=== PATIENT | male | born 1985 | race Caucasian/White ===

== ENCOUNTER 2017-01-10 16:16 | Emergency (ER) | payer OTHER ==
[2017-01-10 16:25] VITALS: TEMP 98.6; BMI 46.3
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
[2017-01-10] MEDS ORDERED: OXYCODONE/APAP 5/325MG COMBO TABLET PO ONE (16:49)
[2017-01-10] MEDS ORDERED: ONDANSETRON *ODT* 4 MG TABLET SL ONE (16:49)
[2017-01-10] MEDS ORDERED: ONDANSETRON *ODT* 4 MG TABLET ONE (16:51)
[2017-01-10] MEDS ORDERED: OXYCODONE/APAP 5/325MG COMBO TABLET ONE (16:51)
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
[2017-01-10 18:53] VITALS: BP 138/76; PULSE 85
== END 2017-01-10 18:53 | disposition home or self-care (01) ==
LOC: JER 16:16
DX: R07.89 Other chest pain (principal); V43.52XA Car driver injured in collision with other type car in traffic accident, initial encounter; Y92.488 Other paved roadways as the place of occurrence of the external cause; Y93.89 Activity, other specified
CPT/HCPCS: 71020-TC; 73030-TC-LT; 99283-25

== ENCOUNTER 2017-08-21 10:40 | Emergency (ER) | payer OTHER, BC ==
[2017-08-21 10:49] VITALS: BP 141/75; PULSE 85; BMI 39.7
[2017-08-21] MEDS ORDERED: DIPHTH,PERTUSS(ACELL),TET 0.5 ML DISP.SYRIN IM ONE (12:36)
--- NOTE | 2017-08-21 12:42 | PDOC ---
History of Present Illness - General Chief Complaint: Laceration Stated Complaint: RT FINGERS LACERATION Time Seen by Provider: 08/21/17 12:11 History Source: Patient Exam Limitations: No Limitations - History of Present Illness Initial Comments: 08/21/17 12:38 My Chief Complaint: rt. index finger laceration History of Present Illness: Occurred: reports: just prior to arrival (at work ) Severity: reports: mild (rt. index finger ) Pain Location: reports: upper extremity (rt. index finger avulsion laceration distal ) Method of Injury: Yes: other (cut on a blade in kitchen at work ) Modifying Factors: improves with: other (pressure dressing ) Loss of Consciousness: no loss of consciousness Associated Symptoms (Fall): denies symptoms Past History - Past Medical History Allergies/Adverse Reactions: Allergies Allergy/AdvReac Type Severity Reaction Status Date / Time No Known Allergies Allergy Verified 08/21/17 10:50 Home Medications: Ambulatory Orders NK [No Known Home Medication] 08/21/17 Anemia: No Asthma: Yes Cancer: No Cardiac Disorders: No CVA: No COPD: No CHF: No Dementia: No Diabetes: No GI Disorders: Yes (GERD,H/O H.PYLORI) Disorders: No HTN: No Hypercholesterolemia: No Liver Disease: No Seizures: No Thyroid Disease: No - Surgical History Abdominal Surgery: No Appendectomy: No Cardiac Surgery: No Cholecystectomy: No Lung Surgery: No Neurologic Surgery: No Orthopedic Surgery: No - Suicide/Smoking/Psychosocial Hx Smoking Status: No Smoking History: Current every day smoker Have you smoked in the past 12 months: Yes Number of Cigarettes Smoked Daily: 8 Information on smoking cessation initiated: Yes 'Breaking Loose' booklet given: 08/21/17 Hx Alcohol Use: Yes (SOCIAL) Drug/Substance Use Hx: No Substance Use Type: None Hx Substance Use Treatment: No Review of Systems - Review of Systems Able to Perform ROS?: Yes Constitutional: No: Symptoms Reported HEENTM: No: Symptoms Reported Respiratory: No: Symptoms reported Cardiac (ROS): No: Symptoms Reported ABD/GI: No: Symptoms Reported : No: Symptoms Reported Musculoskeletal: No: Symptoms Reported Integumentary: Yes: Other (rt. index finger distal aspect avulsion laceration ) Neurological: No: Symptoms reported *Physical Exam - Vital Signs Last Vital Signs Temp Pulse Resp BP Pulse Ox 85 20 141/75 99 08/21/17 10:47 11/29/17 10:47 08/21/17 10:47 08/21/17 10:47 - Physical Exam General Appearance: Yes: Appropriately Dressed Comments:: 08/21/17 12:42 radial pulse 4 + rt. Extremity: positive: Normal Capillary Refill, Normal Inspection, Normal Range of Motion (rt. index finger DIP, PIP jt and mcp jt) Integumentary: positive: Other (rt. index finger distal aspect pea size avulsion ) Neurologic: positive: Alert, Normal Response, Respond to painful stimul (right index ), Responsive Procedures - Consent Consent obtained: From Patient - Laceration/Wound Repair Right Distal Volar Finger 2nd digit Wound Length: to 2.5 cm Wound Explored: clean Wound's Depth, Shape: superficial (avulsion pea size ) Irrigated w/ Saline: Yes Betadine Prep: Yes Sterile Dressing Applied: No Progress: 08/21/17 12:47 cleansed rt. index finger with betadine, than NS 0.9% applied surgicel, telfa, romel *DC/Admit/Observation/Transfer Diagnosis at time of Disposition: Laceration - Discharge Dispostion Disposition: HOME Condition at time of disposition: Stable - Referrals Referrals: Marylu Minaya MD [Primary Care Provider] - - Patient Instructions Additional Instructions: Keep dressing dry today tomorrow may wash wound with antibacterial soap and water and pat dry do not remove surgicel allow it to fall off on its own once it does may apply tiny amount of bacitracin ointment twice daily, cover with bandaid except at night when sleeping return to emergency room if any discharge from wound or redness around wound or any fever Today your tetanus diphtheria and pertussis vaccine was updated And patient voiced understanding of discharge instructions and all questions were answered - Post Discharge Activity Forms/Work/School Notes: Back to Work
== END 2017-08-21 13:05 | disposition home or self-care (01) ==
LOC: JERFT 10:40
PROC: 3E0234Z Introduction of Serum, Toxoid and Vaccine into Muscle, Percutaneous Approach (ICD-10-PCS; principal; 2017-08-21)
PROC: 0HQFXZZ Repair Right Hand Skin, External Approach (ICD-10-PCS; 2017-08-21)
DX: S61.012A Laceration without foreign body of left thumb without damage to nail, initial encounter (principal); W27.8XXA Contact with other nonpowered hand tool, initial encounter; Y93.89 Activity, other specified; Y92.89 Other specified places as the place of occurrence of the external cause; Y99.0 Civilian activity done for income or pay
CPT/HCPCS: 90715; 99281-25

== ENCOUNTER 2020-10-25 21:55 | Emergency (ER) | payer SELFPAY ==
[2020-10-25 22:03] VITALS: BMI 41.5
[2020-10-25] MEDS ORDERED: SODIUM CHLORIDE 1,000 ML IV STA (22:17)
[2020-10-25] MEDS ORDERED: ONDANSETRON 4 MG/2 ML VIAL IVPUSH ONE (22:17)
[2020-10-25] MEDS ORDERED: ONDANSETRON 4 MG/2 ML VIAL ONE (22:27)
[2020-10-25] MEDS ORDERED: BAMLANIVIMAB 700 MG in SODIUM CHLORIDE 250 ML IVPB ONE (23:06)
[2020-10-25 23:27] LABS: POTASSIUM 3.4 mmol/L (3.5-5.1)
[2020-10-25 23:29] LABS: ALBUMIN 3.6 g/dl (3.4-5.0); BLOOD UREA NITROGEN 7.7 mg/dL (7-18); CALCIUM 7.9 mg/dL (8.5-10.1)
[2020-10-25 23:33] LABS: CREATININE 0.9 mg/dL (0.55-1.3); HEMATOCRIT 37.8 % (35.4-49); HEMOGLOBIN 13.3 GM/dL (11.7-16.9); MCH 30.8 pg (25.7-33.7); MCHC 35.2 g/dl (32.0-35.9); MEAN CELL VOLUME 87.4 fl (80-96); MEAN PLT VOLUME 8.5 fl (7.5-11.1); PLATELET COUNT 179 K/MM3 (134-434); RBC 4.33 M/mm3 (4.00-5.60); RDW 12.5 % (11.9-15.9); WHITE BLOOD COUNT 8.3 K/mm3 (4.0-10.0)
[2020-10-25 23:34] LABS: BILIRUBIN,TOTAL 0.4 mg/dL (0.2-1); TOT PROT 7.4 g/dl (6.4-8.2)
[2020-10-26] MEDS ORDERED: ACETAMINOPHEN 325 MG TABLET (FP) PO ONE (00:36)
[2020-10-26] MEDS ORDERED: ACETAMINOPHEN 325 MG TABLET (FP) ONE (00:39)
[2020-10-26 01:01] LABS: EPI CELLS 12 /uL (0-25.1); HYALINE CASTS 0 /uL (0-3.1); PH,URINE 6.5 (5.0-8.0); URINE APPEARANCE CLEAR; URINE BACTERIA 46 /uL (0-1359); URINE BILIRUBIN NEGATIVE (NEGATIVE); URINE COLOR YELLOW; URINE GLUCOSE (UA) NEGATIVE (NEGATIVE); URINE KETONE NEGATIVE (NEGATIVE); URINE LEUK ESTERASE NEGATIVE (NEGATIVE); URINE NITRITE NEGATIVE (NEGATIVE); URINE PROTEIN TRACE (NEGATIVE); URINE RBC 11 /uL (0-23.9); URINE UROBILINOGEN 0.2 mg/dL (0.2-1.0); URINE WBC 12 /uL (0-25.8)
[2020-10-26] MEDS ORDERED: guaiFENesin/D-METHORPHAN HB 10 ML UNIT-DOSE CUPS PO ONE (02:33)
[2020-10-26] MEDS ORDERED: guaiFENesin/D-METHORPHAN HB 10 ML UNIT-DOSE CUPS ONE ×2 (02:35→02:40)
[2020-10-26 03:02] VITALS: BP 113/72; PULSE 82; TEMP 98.8
== END 2020-10-26 03:28 | disposition home or self-care (01) ==
LOC: JER 21:55
PROC: 3E03329 Introduction of Other Anti-infective into Peripheral Vein, Percutaneous Approach (ICD-10-PCS; principal; 2020-10-25)
PROC: 3E033GC Introduction of Other Therapeutic Substance into Peripheral Vein, Percutaneous Approach (ICD-10-PCS; 2020-10-25)
PROC: 3E0337Z Introduction of Electrolytic and Water Balance Substance into Peripheral Vein, Percutaneous Approach (ICD-10-PCS; 2020-10-25)
DX: U07.1 COVID-19 (principal)
CPT/HCPCS: 36415; 71045-TC-FY; 80053; 81003; 83690; 87086; 93005; 93010; 99285-25; M0239; Q0239

== ENCOUNTER 2020-10-27 09:45 | Inpatient (IN) | payer OTHER ==
[2020-10-27] MEDS ORDERED: ONDANSETRON 4 MG/2 ML VIAL IVPUSH ONE (10:33)
[2020-10-27] MEDS ORDERED: LACTATED RINGERS SOLUTION 1000 ML INFUS.BAG IV ONE (10:34)
[2020-10-27] MEDS ORDERED: DEXAMETHASONE SOD PHOSPHATE 4 MG/1 ML VIAL IVPUSH ONE (10:37)
[2020-10-27] MEDS ORDERED: CODEINE SO4 30 MG TABLET PO ONE (10:48)
[2020-10-27] MEDS ORDERED: ACETAMINOPHEN 1000 MG/100 ML VIAL (NON FORMULARY) IVPB ONE (11:05)
[2020-10-27] MEDS ORDERED: ALBUTEROL SO4 2.5/IPRATROPIUM 0.5 INH SOL 3 ML VIAL.NEB. NEB ONE ×2 (11:36→11:40)
[2020-10-27] MEDS ORDERED: ACETAMINOPHEN INJECTION 100 ML IVPB ONE (11:41)
[2020-10-27] MEDS ORDERED: DEXAMETHASONE SOD PHOSPHATE 4 MG/1 ML VIAL ONE (11:41)
[2020-10-27] MEDS ORDERED: ONDANSETRON 4 MG/2 ML VIAL ONE (11:41)
[2020-10-27 11:43] LABS: BASO % 0.2 % (0-2.0); HEMATOCRIT 39.4 % (35.4-49); HEMOGLOBIN 13.6 GM/dL (11.7-16.9); LYMPH % 14.4 % (8-40); MCH 30.7 pg (25.7-33.7); MCHC 34.6 g/dl (32.0-35.9); MEAN CELL VOLUME 88.8 fl (80-96); MEAN PLT VOLUME 7.4 fl (7.5-11.1); MONO % 5.1 % (3.8-10.2); NEUT % 80.3 % (42.8-82.8); PLATELET COUNT 202 K/MM3 (134-434); RBC 4.44 M/mm3 (4.00-5.60); RDW 12.7 % (11.9-15.9); WHITE BLOOD COUNT 6.3 K/mm3 (4.0-10.0)
[2020-10-27 11:50] LABS: INR 1.19 (0.83-1.09); PROTHROMBIN TIME (PATIENT) 14.3 SEC (9.7-13.0)
[2020-10-27 11:53] LABS: ACTIVATED PTT 32.7 SECONDS (25.2-36.5)
[2020-10-27 12:02] LABS: POTASSIUM 3.8 mmol/L (3.5-5.1)
[2020-10-27 12:05] LABS: ALBUMIN 3.5 g/dl (3.4-5.0); BLOOD UREA NITROGEN 6.3 mg/dL (7-18); CALCIUM 7.9 mg/dL (8.5-10.1)
[2020-10-27 12:09] LABS: BILIRUBIN,DIRECT 0.2 mg/dL (0.0-0.2); CREATININE 0.9 mg/dL (0.55-1.3)
[2020-10-27 12:10] LABS: BILIRUBIN,TOTAL 0.8 mg/dL (0.2-1); TOT PROT 7.4 g/dl (6.4-8.2)
[2020-10-27] MEDS ORDERED: ACETAMINOPHEN 325 MG TABLET (FP) PO PRN (13:37)
[2020-10-27] MEDS ORDERED: SODIUM CHLORIDE 1,000 ML IV SCH (13:45)
[2020-10-27 14:27] LABS: EPI CELLS 15 /uL (0-25.1); HYALINE CASTS 0 /uL (0-3.1); PH,URINE 6.5 (5.0-8.0); URINE APPEARANCE CLEAR; URINE BACTERIA 213 /uL (0-1359); URINE BILIRUBIN NEGATIVE (NEGATIVE); URINE COLOR YELLOW; URINE GLUCOSE (UA) NEGATIVE (NEGATIVE); URINE KETONE 1+ (NEGATIVE); URINE LEUK ESTERASE NEGATIVE (NEGATIVE); URINE NITRITE NEGATIVE (NEGATIVE); URINE PROTEIN TRACE (NEGATIVE); URINE RBC 6 /uL (0-23.9); URINE UROBILINOGEN 0.2 mg/dL (0.2-1.0); URINE WBC 10 /uL (0-25.8)
[2020-10-27] MEDS ORDERED: AZITHROMYCIN IVPB 500 MG/250 ML BAG IVPB ONE ×2 (18:02→18:57)
[2020-10-27] MEDS: FAMOTIDINE 20 MG TABLET PO SCH (18:50)
[2020-10-27] MEDS ORDERED: FAMOTIDINE 20 MG TABLET ONE (18:56)
[2020-10-27] MEDS ORDERED: CEFTRIAXONE 1 GM/50 ML BAG ONE (18:56)
[2020-10-27] MEDS: CEFTRIAXONE 1 GM in DEXTROSE 5%-WATER - 50 ML IVPB SCH (19:09)
[2020-10-27] MEDS: ZINC SULFATE 220 MG CAPSULE (FP) PO SCH (22:11)
[2020-10-27] MEDS: ASCORBIC ACID 500 MG TABLET (FP) PO SCH (22:11)
[2020-10-28] MEDS ORDERED: METOCLOPRAMIDE HCL INJECTION 10 MG/2 ML VIAL IVPUSH ONE (01:30)
[2020-10-28] MEDS: BENZOCAINE/MENTH/CETYLPYRD CL 1 EACH LOZENGE MM PRN (06:00)
[2020-10-28] MEDS ORDERED: DEXTROSE 5%-WATER - 50 ML IVPB ONE (09:28)
[2020-10-28] MEDS ORDERED: cefTRIAXone SODIUM 1 GM VIAL ONE (09:28)
[2020-10-28] MEDS: ZINC SULFATE 220 MG CAPSULE (FP) PO SCH ×2 (09:34→21:47)
[2020-10-28] MEDS: FAMOTIDINE 20 MG TABLET PO SCH (09:34)
[2020-10-28] MEDS: ALBUTEROL SO4 HFA INHALER IH PRN (09:34)
[2020-10-28] MEDS: CEFTRIAXONE 1 GM in DEXTROSE 5%-WATER - 50 ML IVPB SCH (09:34)
[2020-10-28] MEDS: ENOXAPARIN NA (PORCINE) 40 MG/0.4 ML DISP.SYRIN SQ SCH (09:34)
[2020-10-28] MEDS: ASCORBIC ACID 500 MG TABLET (FP) PO SCH ×2 (09:34→21:47)
[2020-10-28] MEDS: guaiFENesin/D-M SUGAR-FREE/ACLHOL-FREE 118 ML BOTTLE PO PRN ×2 (09:43→17:37)
[2020-10-28] MEDS ORDERED: DEXAMETHASONE 4 MG TABLET (FP) PO SCH (10:00)
[2020-10-28 10:14] LABS: POTASSIUM 3.5 mmol/L (3.5-5.1)
[2020-10-28 10:16] LABS: ALBUMIN 3.3 g/dl (3.4-5.0); BLOOD UREA NITROGEN 8.4 mg/dL (7-18); MAGNESIUM 1.9 mg/dL (1.8-2.4)
[2020-10-28 10:19] LABS: BASO % 0.1 % (0-2.0); HEMOGLOBIN 12.5 GM/dL (11.7-16.9); LYMPH % 11.3 % (8-40); MCH 30.8 pg (25.7-33.7); MCHC 34.7 g/dl (32.0-35.9); MEAN CELL VOLUME 88.7 fl (80-96); MEAN PLT VOLUME 7.9 fl (7.5-11.1); NEUT % 82.6 % (42.8-82.8); PLATELET COUNT 236 K/MM3 (134-434); RBC 4.06 M/mm3 (4.00-5.60); RDW 12.7 % (11.9-15.9); WHITE BLOOD COUNT 9.1 K/mm3 (4.0-10.0)
[2020-10-28 10:19] LABS: CREATININE 0.7 mg/dL (0.55-1.3)
[2020-10-28 10:21] LABS: BILIRUBIN,TOTAL 0.4 mg/dL (0.2-1)
[2020-10-28] MEDS: AZITHROMYCIN IVPB 250 MG in DEXTROSE 5%-WATER - 250 ML IVPB SCH (10:52)
[2020-10-28] MEDS: CHOLECALCIFEROL (VIT D3) 5000 UNITS (125 MCG) CAP PO SCH (10:56)
[2020-10-28] MEDS: HYDROCORTISONE 0.5% TOPICAL CREAM 30 GM TUBE TP SCH (13:39)
[2020-10-28] MEDS ORDERED: REMDESIVIR 200 MG in SODIUM CHLORIDE 210 ML IVPB ONE (15:45)
[2020-10-28] MEDS ORDERED: PT OWN MED DRAWER 7, Y5N ONE (17:37)
[2020-10-29] MEDS ORDERED: PT OWN MED DRAWER 7, Y5N ONE ×3 (02:35→22:59)
[2020-10-29] MEDS: guaiFENesin/D-M SUGAR-FREE/ACLHOL-FREE 118 ML BOTTLE PO PRN ×3 (02:42→23:01)
[2020-10-29] MEDS: BENZOCAINE/MENTH/CETYLPYRD CL 1 EACH LOZENGE MM PRN (03:00)
[2020-10-29 09:21] LABS: BASO % 0.2 % (0-2.0); HEMATOCRIT 37.3 % (35.4-49); HEMOGLOBIN 12.7 GM/dL (11.7-16.9); LYMPH % 10.1 % (8-40); MCH 30.7 pg (25.7-33.7); MEAN CELL VOLUME 90.3 fl (80-96); MEAN PLT VOLUME 7.5 fl (7.5-11.1); MONO % 8.5 % (3.8-10.2); NEUT % 81.2 % (42.8-82.8); PLATELET COUNT 297 K/MM3 (134-434); RBC 4.13 M/mm3 (4.00-5.60); RDW 12.7 % (11.9-15.9); WHITE BLOOD COUNT 9.8 K/mm3 (4.0-10.0)
[2020-10-29 09:27] LABS: POTASSIUM 3.9 mmol/L (3.5-5.1)
[2020-10-29 09:40] LABS: ALBUMIN 3.2 g/dl (3.4-5.0); CALCIUM 8.1 mg/dL (8.5-10.1); MAGNESIUM 2.3 mg/dL (1.8-2.4); PHOSPHOROUS 3.9 mg/dL (2.5-4.9)
[2020-10-29 09:41] LABS: TOT PROT 7.2 g/dl (6.4-8.2)
[2020-10-29 09:42] LABS: CREATININE 0.6 mg/dL (0.55-1.3)
[2020-10-29 09:44] LABS: BILIRUBIN,TOTAL 0.7 mg/dL (0.2-1)
[2020-10-29] MEDS: DEXAMETHASONE SOD PHOSPHATE 4 MG/1 ML VIAL IVPUSH SCH (11:02)
[2020-10-29] MEDS: ENOXAPARIN NA (PORCINE) 40 MG/0.4 ML DISP.SYRIN SQ SCH (11:02)
[2020-10-29] MEDS: HYDROCORTISONE 0.5% TOPICAL CREAM 30 GM TUBE TP SCH (11:03)
[2020-10-29] MEDS: AZITHROMYCIN IVPB 250 MG in DEXTROSE 5%-WATER - 250 ML IVPB SCH (11:04)
[2020-10-29] MEDS: ZINC SULFATE 220 MG CAPSULE (FP) PO SCH ×2 (11:04→22:33)
[2020-10-29] MEDS: ASCORBIC ACID 500 MG TABLET (FP) PO SCH ×2 (11:04→22:33)
[2020-10-29] MEDS: FAMOTIDINE 20 MG TABLET PO SCH (11:04)
[2020-10-29] MEDS: CHOLECALCIFEROL (VIT D3) 5000 UNITS (125 MCG) CAP PO SCH (11:04)
[2020-10-29] MEDS: REMDESIVIR 100 MG in SODIUM CHLORIDE 230 ML IVPB SCH (17:02)
[2020-10-30] MEDS: ALBUTEROL SO4 HFA INHALER IH PRN (09:15)
[2020-10-30 09:21] LABS: BASO % 0.1 % (0-2.0); HEMOGLOBIN 12.4 GM/dL (11.7-16.9); LYMPH % 12.1 % (8-40); MCH 31.1 pg (25.7-33.7); MCHC 34.5 g/dl (32.0-35.9); MEAN CELL VOLUME 90.1 fl (80-96); MEAN PLT VOLUME 7.2 fl (7.5-11.1); NEUT % 75.8 % (42.8-82.8); PLATELET COUNT 363 K/MM3 (134-434); RDW 12.9 % (11.9-15.9); WHITE BLOOD COUNT 8.5 K/mm3 (4.0-10.0)
[2020-10-30 09:33] LABS: POTASSIUM 3.7 mmol/L (3.5-5.1)
[2020-10-30 09:36] LABS: ALBUMIN 3.1 g/dl (3.4-5.0); BLOOD UREA NITROGEN 9.1 mg/dL (7-18); CALCIUM 8.3 mg/dL (8.5-10.1)
[2020-10-30 09:37] LABS: MAGNESIUM 2.3 mg/dL (1.8-2.4)
[2020-10-30] MEDS: ENOXAPARIN NA (PORCINE) 40 MG/0.4 ML DISP.SYRIN SQ SCH (09:37)
[2020-10-30] MEDS: DEXAMETHASONE SOD PHOSPHATE 4 MG/1 ML VIAL IVPUSH SCH (09:37)
[2020-10-30] MEDS: HYDROCORTISONE 0.5% TOPICAL CREAM 30 GM TUBE TP SCH (09:37)
[2020-10-30] MEDS: FAMOTIDINE 20 MG TABLET PO SCH (09:38)
[2020-10-30] MEDS: ASCORBIC ACID 500 MG TABLET (FP) PO SCH ×2 (09:38→21:42)
[2020-10-30] MEDS: ZINC SULFATE 220 MG CAPSULE (FP) PO SCH ×2 (09:38→21:42)
[2020-10-30 09:40] LABS: CREATININE 0.6 mg/dL (0.55-1.3); PHOSPHOROUS 3.8 mg/dL (2.5-4.9)
[2020-10-30 09:41] LABS: BILIRUBIN,TOTAL 0.6 mg/dL (0.2-1); TOT PROT 6.7 g/dl (6.4-8.2)
[2020-10-30] MEDS ORDERED: PT OWN MED DRAWER 7, Y5N ONE ×3 (09:41→13:17)
[2020-10-30] MEDS: AZITHROMYCIN IVPB 250 MG in DEXTROSE 5%-WATER - 250 ML IVPB SCH (09:43)
[2020-10-30] MEDS: CHOLECALCIFEROL (VIT D3) 5000 UNITS (125 MCG) CAP PO SCH (09:44)
[2020-10-30 11:28] VITALS: BMI 41.0
[2020-10-30] MEDS: guaiFENesin/D-M SUGAR-FREE/ACLHOL-FREE 118 ML BOTTLE PO PRN (13:34)
[2020-10-30] MEDS: REMDESIVIR 100 MG in SODIUM CHLORIDE 230 ML IVPB SCH (18:22)
[2020-10-31 09:35] LABS: POTASSIUM 3.8 mmol/L (3.5-5.1)
[2020-10-31 09:38] LABS: ALBUMIN 3.1 g/dl (3.4-5.0); BLOOD UREA NITROGEN 8.6 mg/dL (7-18)
[2020-10-31 09:41] LABS: CREATININE 0.6 mg/dL (0.55-1.3)
[2020-10-31 09:43] LABS: BILIRUBIN,TOTAL 1.1 mg/dL (0.2-1); TOT PROT 6.9 g/dl (6.4-8.2)
[2020-10-31] MEDS: ENOXAPARIN NA (PORCINE) 40 MG/0.4 ML DISP.SYRIN SQ SCH (10:49)
[2020-10-31] MEDS: FAMOTIDINE 20 MG TABLET PO SCH (10:50)
[2020-10-31] MEDS: ASCORBIC ACID 500 MG TABLET (FP) PO SCH ×2 (10:50→22:27)
[2020-10-31] MEDS: ZINC SULFATE 220 MG CAPSULE (FP) PO SCH ×2 (10:50→22:27)
[2020-10-31] MEDS ORDERED: PT OWN MED DRAWER 7, Y5N ONE ×2 (10:52→12:12)
[2020-10-31] MEDS: CHOLECALCIFEROL (VIT D3) 5000 UNITS (125 MCG) CAP PO SCH (10:55)
[2020-10-31] MEDS: DEXAMETHASONE SOD PHOSPHATE 4 MG/1 ML VIAL IVPUSH SCH (11:11)
[2020-10-31] MEDS: HYDROCORTISONE 0.5% TOPICAL CREAM 30 GM TUBE TP SCH (11:35)
[2020-10-31] MEDS ORDERED: LYTES/YERBA SANTA 60 ML SPRAY MM PRN (12:12)
[2020-10-31] MEDS: REMDESIVIR 100 MG in SODIUM CHLORIDE 230 ML IVPB SCH (15:20)
[2020-11-01] MEDS: HYDROCORTISONE 0.5% TOPICAL CREAM 30 GM TUBE TP SCH (09:33)
[2020-11-01] MEDS: DEXAMETHASONE SOD PHOSPHATE 4 MG/1 ML VIAL IVPUSH SCH (09:33)
[2020-11-01] MEDS: ENOXAPARIN NA (PORCINE) 40 MG/0.4 ML DISP.SYRIN SQ SCH (09:34)
[2020-11-01] MEDS: CHOLECALCIFEROL (VIT D3) 5000 UNITS (125 MCG) CAP PO SCH (09:34)
[2020-11-01] MEDS: FAMOTIDINE 20 MG TABLET PO SCH (09:34)
[2020-11-01] MEDS: ZINC SULFATE 220 MG CAPSULE (FP) PO SCH (09:34)
[2020-11-01] MEDS: ASCORBIC ACID 500 MG TABLET (FP) PO SCH (09:34)
[2020-11-01 09:51] LABS: POTASSIUM 3.8 mmol/L (3.5-5.1)
[2020-11-01 10:38] LABS: CREATININE 0.6 mg/dL (0.55-1.3)
[2020-11-01 10:40] LABS: BILIRUBIN,TOTAL 0.8 mg/dL (0.2-1); CALCIUM 8.1 mg/dL (8.5-10.1); TOT PROT 7.1 g/dl (6.4-8.2)
[2020-11-01 10:41] LABS: ALBUMIN 3.2 g/dl (3.4-5.0); BLOOD UREA NITROGEN 8.6 mg/dL (7-18)
[2020-11-01 14:40] VITALS: BP 110/64; PULSE 77; TEMP 98.8
[2020-11-01] MEDS: REMDESIVIR 100 MG in SODIUM CHLORIDE 230 ML IVPB SCH (15:34)
== END 2020-11-01 18:35 | disposition home or self-care (01) | DRG 137 ==
LOC: JER 09:45 → JERBED 10:35 → J6S 21:22
PROVIDERS: ATTEND Internal Medicine
PROC: XW033E5 Introduction of Remdesivir Anti-infective into Peripheral Vein, Percutaneous Approach, New Technology Group 5 (ICD-10-PCS; principal; 2020-10-28)
PROC: XW033H6 Introduction of Other New Technology Monoclonal Antibody into Peripheral Vein, Percutaneous Approach, New Technology Group 6 (ICD-10-PCS; 2020-10-28)
DX: U07.1 COVID-19 (principal); J12.82 Pneumonia due to coronavirus disease 2019; M62.82 Rhabdomyolysis; E66.01 Morbid (severe) obesity due to excess calories; Z68.41 Body mass index [BMI] 40.0-44.9, adult; R09.02 Hypoxemia; R94.5 Abnormal results of liver function studies; R74.01 Elevation of levels of liver transaminase levels; J45.909 Unspecified asthma, uncomplicated; E11.9 Type 2 diabetes mellitus without complications
CPT/HCPCS: 36415; 71045-TC-FY; 80053; 81003; 82248; 82550; 82553; 82728; 83605; 83615; 83735; 84100; 84484; 85025; 85379; 85610; 85730; 86140; 87040; 87086; 87804; 87899; 93005; 93010; 94010; 94761; 99285-25; C9399; C9803; J0131; U0003

== ENCOUNTER 2024-01-22 22:46 | Emergency (ER) | payer BC ==
[2024-01-22 22:53] VITALS: BP 142/88; PULSE 85; RESP 16; TEMP 98; BMI 46.0
== END 2024-01-22 23:40 | disposition home or self-care (01) ==
LOC: FER 22:46
DX: I83.892 Varicose veins of left lower extremity with other complications (principal)
CPT/HCPCS: 99283-25